=== PATIENT | male | born 1970 | race Caucasian/White ===

== ENCOUNTER 2024-09-28 20:39 | Emergency (ER) | payer MEDICAID ==
[~2024-09-28] VITALS: Ht 172.7 cm; Wt 59.0 kg
[2024-09-28 20:40] VITALS: BP 130/85; PULSE 88; RESP 16; TEMP 37.1; O2SAT 98
== END 2024-09-29 01:14 | disposition left against medical advice (07) ==
LOC: ER 20:39
DX: R10.32 Left lower quadrant pain (principal); Z53.21 Procedure and treatment not carried out due to patient leaving prior to being seen by health care provider